=== PATIENT | male | born 1960 | race Hispanic/Latino ===

== ENCOUNTER 2018-08-05 16:51 | Emergency (ER) | payer MEDICARE ==
[~2018-08-05 16:51] MED LIST: AMLO5TAB9 PO; CALC0.5C11 PO; CARV25TA PO; HYDROX PO; INSU100V12 SQ; LORA1TAB3 PO; MECL-129 PO; MULT-1296 PO; TACR1CAP18 PO; TORS20TA4 PO; auryxia PO; vit d2 PO
[2018-08-05 17:46] LABS: BASOPHILS % (AUTO) 0.5 % (0.0-5.0); EOSINOPHILS % (AUTO) 4.5 % (0.0-8.0); HEMATOCRIT 29.4 % (42-54); LYMPHOCYTES % (AUTO) 22.9 % (21.0-51.0); MEAN CORPUSCULAR HGB CONC 34.1 g/dL (32.0-36.0); MEAN CORPUSCULAR VOLUME 94.1 fL (79-99); MONOCYTES % (AUTO) 7.3 % (3.0-13.0); NEUTROPHILS % (AUTO) 64.8 % (40.0-77.0); PLATELET COUNT (AUTO) 144 K/uL (130-400); RED BLOOD CELL COUNT(AUTO) 3.13 MIL/uL (4.50-6.20); RED CELL DISTRIBUTION WIDTH 14.1 % (11.0-15.5); WHITE BLOOD COUNT (AUTO) 8.1 K/uL (4.8-10.8)
[2018-08-05 18:02] LABS: CREATININE 7.7 mg/dL (0.5-1.5); POTASSIUM 3.6 mmol/L (3.5-5.1)
== END 2018-08-05 19:25 | disposition home or self-care (01) ==
LOC: EDH 16:51
DX: R07.2 Precordial pain (principal); I12.0 Hypertensive chronic kidney disease with stage 5 chronic kidney disease or end stage renal disease; E11.22 Type 2 diabetes mellitus with diabetic chronic kidney disease; N18.6 End stage renal disease; I25.10 Atherosclerotic heart disease of native coronary artery without angina pectoris; Z94.0 Kidney transplant status; Z94.4 Liver transplant status; Z87.891 Personal history of nicotine dependence; Z79.4 Long term (current) use of insulin
CPT/HCPCS: 36415; 71045; 80048; 82948; 84484; 85025; 93005

== ENCOUNTER 2020-06-16 16:11 | Emergency (ER) | payer MEDICARE ==
[~2020-06-16 16:11] MED LIST changes: +AMLO-257 PO; -AMLO5TAB9 PO
[2020-06-16 17:31] LABS: BASOPHILS % (AUTO) 0.6 % (0.0-5.0); HEMATOCRIT 36.4 % (42-54); LYMPHOCYTES % (AUTO) 21.2 % (21.0-51.0); MEAN CORPUSCULAR HGB CONC 34.1 g/dL (32.0-36.0); MEAN CORPUSCULAR VOLUME 96.8 fL (79-99); MONOCYTES % (AUTO) 9.1 % (3.0-13.0); NEUTROPHILS % (AUTO) 65.9 % (40.0-77.0); PLATELET COUNT (AUTO) 163 K/uL (130-400); RED BLOOD CELL COUNT(AUTO) 3.76 MIL/uL (4.50-6.20); RED CELL DISTRIBUTION WIDTH 13.2 % (11.0-15.5)
[2020-06-16 17:38] LABS: CREATININE 6.8 mg/dL (0.5-1.5); POTASSIUM 5.2 mmol/L (3.5-5.1)
[2020-06-16 17:43] LABS: ALBUMIN 3.2 g/dL (3.5-5.0); BILIRUBIN,TOTAL 0.3 mg/dL (0.2-1.0); TOTAL PROTEIN, SERUM 7.6 g/dL (6.0-8.3)
[2020-06-16] MEDS ORDERED: MORPHINE SULFATE 4 MG/1ML SYG ONE (19:00)
== END 2020-06-16 20:25 | disposition home or self-care (01) ==
LOC: EDH 16:11
DX: K52.9 Noninfective gastroenteritis and colitis, unspecified (principal); K59.00 Constipation, unspecified; I25.10 Atherosclerotic heart disease of native coronary artery without angina pectoris; I12.0 Hypertensive chronic kidney disease with stage 5 chronic kidney disease or end stage renal disease; E11.22 Type 2 diabetes mellitus with diabetic chronic kidney disease; N18.6 End stage renal disease; Z99.2 Dependence on renal dialysis
CPT/HCPCS: 36415; 74176; 80053; 82150; 83690; 85025; 93005; 96374; 99285; J2270

== ENCOUNTER 2020-08-09 06:11 | Day surgery (SDC) | payer MEDICARE ==
[~2020-08-09 06:11] MED LIST changes: -AMLO-257 PO; -CALC0.5C11 PO; +CARV12.511 PO; -CARV25TA PO; +FOLI0.8T22 PO; -HYDROX PO; -LORA1TAB3 PO; -MECL-129 PO; +MECL-160 PO; +TACR1CAP10 PO; -TACR1CAP18 PO; -TORS20TA4 PO; -auryxia PO; +folic acid PO; -vit d2 PO
[2020-08-09] MEDS ORDERED: SODIUM CHLORIDE 0.9% 1000ML 1,000 ML IV ONE (06:24)
[2020-08-09 07:11] LABS: CREATININE 6.2 mg/dL (0.5-1.5); POTASSIUM 4.3 mmol/L (3.5-5.1)
[2020-08-09] MEDS ORDERED: PROPOFOL 10 MG/ML 20ML VIAL IV ONE ×2 (07:24→07:42)
[2020-08-09 07:55] VITALS: BP 96/32
[2020-08-09 08:00] VITALS: BP 98/36
[2020-08-09 08:05] VITALS: BP 100/39
[2020-08-09 08:10] VITALS: BP 100/39
[2020-08-09 08:15] VITALS: BP 99/39
[2020-08-09 08:20] VITALS: BP 100/41
== END 2020-08-09 08:30 | disposition home or self-care (01) ==
LOC: ENDO 06:11 → DAH 06:11 → ENDO 08:30
PROVIDERS: ATTEND Internal Medicine Gastroenterology
DX: R19.4 Change in bowel habit (principal); K62.1 Rectal polyp; K29.70 Gastritis, unspecified, without bleeding; K31.89 Other diseases of stomach and duodenum; K57.30 Diverticulosis of large intestine without perforation or abscess without bleeding; I12.0 Hypertensive chronic kidney disease with stage 5 chronic kidney disease or end stage renal disease; E11.22 Type 2 diabetes mellitus with diabetic chronic kidney disease; N18.6 End stage renal disease; R31.0 Gross hematuria; Z94.4 Liver transplant status; I25.10 Atherosclerotic heart disease of native coronary artery without angina pectoris; F41.9 Anxiety disorder, unspecified; Z95.1 Presence of aortocoronary bypass graft; Z98.890 Other specified postprocedural states; Z79.899 Other long term (current) drug therapy; Z20.828 Contact with and (suspected) exposure to other viral communicable diseases
CPT/HCPCS: 36415; 43239; 45385; 80048; 82948 ×2; A4215; A4221; A4222; A4223; A4606; A4620; A4663; J2704 ×2; J7030; U0003

== ENCOUNTER 2020-12-12 16:42 | Emergency (ER) | payer MEDICARE ==
[2020-12-12 18:40] LABS: BASOPHILS % (AUTO) 0.5 % (0.0-5.0); EOSINOPHILS % (AUTO) 2.1 % (0.0-8.0); HEMATOCRIT 38.5 % (42-54); LYMPHOCYTES % (AUTO) 19.4 % (21.0-51.0); MEAN CORPUSCULAR HEMOGLOBIN 32.2 pg (27.0-33.0); MEAN CORPUSCULAR HGB CONC 33.2 g/dL (32.0-36.0); MONOCYTES % (AUTO) 7.3 % (3.0-13.0); NEUTROPHILS % (AUTO) 70.4 % (40.0-77.0); PLATELET COUNT (AUTO) 163 K/uL (130-400); RED BLOOD CELL COUNT(AUTO) 3.97 MIL/uL (4.50-6.20); RED CELL DISTRIBUTION WIDTH 13.9 % (11.0-15.5); WHITE BLOOD COUNT (AUTO) 9.4 K/uL (4.8-10.8)
[2020-12-12] MEDS ORDERED: MAG HYDROX/AL HYDROX/SIMETH ES 30 ML SUSP UDCUP ONE (18:43)
[2020-12-12] MEDS ORDERED: LIDOCAINE HCL 2% VISCOUS 15 ML UDCUP ONE (18:43)
[2020-12-12] MEDS ORDERED: FAMOTIDINE 20MG TAB 20 MG TAB ONE (18:44)
[2020-12-12 19:00] LABS: ALBUMIN 3.4 g/dL (3.5-5.0); BILIRUBIN,TOTAL 0.3 mg/dL (0.2-1.0)
== END 2020-12-12 19:24 | disposition home or self-care (01) ==
LOC: EDH 16:42
DX: K29.00 Acute gastritis without bleeding (principal); R07.89 Other chest pain; I25.10 Atherosclerotic heart disease of native coronary artery without angina pectoris; I12.0 Hypertensive chronic kidney disease with stage 5 chronic kidney disease or end stage renal disease; E11.22 Type 2 diabetes mellitus with diabetic chronic kidney disease; N18.6 End stage renal disease; Z99.2 Dependence on renal dialysis; Z95.1 Presence of aortocoronary bypass graft
CPT/HCPCS: 36415; 71045; 80053; 83690; 84484; 85025; 93005

== ENCOUNTER → 2020-12-20 | Outpatient (CLI) | payer MEDICARE | END | disposition home or self-care (01) | LOC: RAH 07:59 | PROVIDERS: ATTEND Family Medicine | DX: N26.1 Atrophy of kidney (terminal) (principal); Z94.4 Liver transplant status | CPT/HCPCS: 76700 ==

== ENCOUNTER 2022-06-25 12:52 | Emergency (ER) | payer MEDICARE ==
[~2022-06-25] VITALS: Ht 170.2 cm; Wt 104.3 kg
[2022-06-25 14:09] LABS: BASOPHILS % (AUTO) 0.4 % (0.0-5.0); EOSINOPHILS % (AUTO) 4.1 % (0.0-8.0); HEMATOCRIT 39.2 % (42-54); LYMPHOCYTES % (AUTO) 17.8 % (21.0-51.0); MEAN CORPUSCULAR HEMOGLOBIN 32.5 pg (27.0-33.0); MEAN CORPUSCULAR HGB CONC 33.7 g/dL (32.0-36.0); MEAN CORPUSCULAR VOLUME 96.6 fL (79-99); MONOCYTES % (AUTO) 8.8 % (3.0-13.0); NEUTROPHILS % (AUTO) 68.5 % (40.0-77.0); PLATELET COUNT (AUTO) 150 K/uL (130-400); RED BLOOD CELL COUNT(AUTO) 4.06 MIL/uL (4.50-6.20); RED CELL DISTRIBUTION WIDTH 13.3 % (11.0-15.5); WHITE BLOOD COUNT (AUTO) 7.3 K/uL (4.8-10.8)
[2022-06-25 14:33] LABS: ALBUMIN 3.1 g/dL (3.5-5.0); CREATININE 5.3 mg/dL (0.5-1.5); POTASSIUM 4.6 mmol/L (3.5-5.1); TOTAL PROTEIN, SERUM 7.9 g/dL (6.0-8.3)
[2022-06-25] MEDS: SOLU-MEDROL 125MG VIAL IVP ONE (18:19)
[2022-06-25] MEDS: BENZONATATE 100 MG CAPSULE PO ONE (18:20)
[2022-06-25] MEDS: IPRATROPIUM/ALBUTEROL SULFATE 3 ML SOLUTION IH ONE (18:27)
[2022-06-25] MEDS ORDERED: PRED20TA3 PO (19:17)
[2022-06-25 19:50] VITALS: BP 132/74
== END 2022-06-25 19:52 | disposition home or self-care (01) ==
LOC: EDH 12:52
DX: J06.9 Acute upper respiratory infection, unspecified (principal); J45.909 Unspecified asthma, uncomplicated; E78.00 Pure hypercholesterolemia, unspecified; E11.9 Type 2 diabetes mellitus without complications; I73.9 Peripheral vascular disease, unspecified; Z94.4 Liver transplant status; Z20.822 Contact with and (suspected) exposure to COVID-19; Z48.22 Encounter for aftercare following kidney transplant
CPT/HCPCS: 99285; 82550; 84484 ×2; 80053; 83880; 85025; 87804 ×2; 36415; 87635; 71045; 96374; 93005; 94640; C9803; J2930

== ENCOUNTER 2022-12-26 01:58 | Emergency (ER) | payer MEDICARE ==
[~2022-12-26 01:58] MED LIST changes: +PRED20TA3 PO
[2022-12-26 02:00] VITALS: BP 170/78
== END 2022-12-26 03:58 | disposition left against medical advice (07) ==
LOC: EDH 01:58
DX: R53.1 Weakness (principal); Z53.21 Procedure and treatment not carried out due to patient leaving prior to being seen by health care provider
CPT/HCPCS: 99281